=== PATIENT | female | born 1960 | race Caucasian/White ===

== ENCOUNTER 2021-07-21 16:58 | Inpatient (IN) | payer OTHER ==
[~2021-07-21] VITALS: Ht 177.8 cm; Wt 68.0 kg
[2021-07-24 08:09] VITALS: BP 135/78
== END 2021-07-24 14:13 | DRG 641 ==
LOC: ED 18:57 → EDIP 18:58 → ED 19:16 → 4EST 21:46
PROVIDERS: ADMIT Internal Medicine; ATTEND Internal Medicine
DX: E87.1 Hypo-osmolality and hyponatremia (principal); E44.0 Moderate protein-calorie malnutrition; E87.6 Hypokalemia; F12.90 Cannabis use, unspecified, uncomplicated; E83.42 Hypomagnesemia; F17.210 Nicotine dependence, cigarettes, uncomplicated; F31.9 Bipolar disorder, unspecified; R29.6 Repeated falls; G89.29 Other chronic pain; I10 Essential (primary) hypertension; E03.9 Hypothyroidism, unspecified; D64.9 Anemia, unspecified; Z88.0 Allergy status to penicillin; Z68.21 Body mass index [BMI] 21.0-21.9, adult